=== PATIENT | female | born 1930 | race Caucasian/White ===

== ENCOUNTER 2017-10-07 11:11 | Emergency (ER) | payer MEDICARE, MEDICAID ==
[~2017-10-07] VITALS: Ht 147.3 cm; Wt 56.7 kg
[~2017-10-07 11:11] MED LIST: BLOO-129 IN; BUSP5TAB3 PO; GABA-532 PO; GEL90GEL2 TP; INSU100V27 SQ; INSU3INS6 SQ; LEVO75TA7 PO; LISI2.5T2 PO; MIRT15TA PO; NITR100C PO; QUET25TA PO; VENL75TA4 PO
[2017-10-07 11:14] VITALS: BP 123/53
== END 2017-10-07 13:19 | disposition home or self-care (01) ==
LOC: ER 11:14
DX: K94.29 Other complications of gastrostomy (principal); E07.9 Disorder of thyroid, unspecified; E11.9 Type 2 diabetes mellitus without complications; F03.90 Unspecified dementia, unspecified severity, without behavioral disturbance, psychotic disturbance, mood disturbance, and anxiety; K44.9 Diaphragmatic hernia without obstruction or gangrene; Z79.4 Long term (current) use of insulin
CPT/HCPCS: A4606; Z7502; Z7610

== ENCOUNTER 2019-09-04 11:00 | Inpatient (IN) | payer MEDICARE, MEDICAID ==
[~2019-09-04] VITALS: Ht 147.3 cm; Wt 56.2 kg
--- NOTE | 2019-09-04 11:10 | NUR ---
DAHIANA RA FROM HOME, VOMITING SINCE LAST NIGHT. PATIENT A/OX2-3, GERMAN SPEAKING, BREATHING EVEN AND UNLABORED, NO SOB NOTED, KEPT COMFORTABLE. WILL CONTINUE TO MONITOR. Addendum: 09/04/19 at 1347 by ROALCANCES PATIENT A/OX1-2 WITH EPISODES OF CONFUSION.
[2019-09-04] MEDS ORDERED: ONDANSETRON HCL/PF 4 MG/2 ML VIAL ONE (11:15)
--- NOTE | 2019-09-04 11:15 | NUR ---
IV LINE ESTABLISHED, BLOOD DRAWN AND SENT TO LAB.
[2019-09-04] MEDS ORDERED: ONDANSETRON HCL/PF 4 MG/2 ML VIAL IVP ONE (11:30)
[2019-09-04 11:34] LABS: BASOPHILS # (AUTO) 0.2 /CMM (0.0-0.2); BASOPHILS % (AUTO) 1.3 % (0.0-2.0); EOSINOPHILS % (AUTO) 1.3 % (0.0-6.0); HEMATOCRIT 36 % (33-45); LYMPHOCYTES # (AUTO) 1.1 /CMM (0.8-4.8); LYMPHOCYTES % (AUTO) 7.4 % (20.0-44.0); MEAN CORPUSCULAR HGB CONC 33 g/dl (31.0-36.0); MEAN CORPUSCULAR VOLUME 94 fL (82-100); MONOCYTES # (AUTO) 0.6 /CMM (0.1-1.30); MONOCYTES % (AUTO) 4.5 % (2.0-12.0); NEUTROPHILS # (AUTO) 12.2 /CMM (1.8-8.9); NEUTROPHILS % (AUTO) 85.5 % (43.0-81.0); PLATELET COUNT (AUTO) 155 /CMM (150-450); RED BLOOD CELL COUNT(AUTO) 3.89 MIL/uL (4.0-5.2); WHITE BLOOD COUNT (AUTO) 14.2 K/uL (4.3-11.0)
[2019-09-04 11:45] LABS: CALCIUM, SERUM 9.8 mg/dL (8.5-10.1); CARBON DIOXIDE 27 mmol/L (21-32); CHLORIDE 105 mmol/L (98-107); CREATININE 1.2 mg/dL (0.6-1.3); GLUCOSE 125 mg/dL (74-106); POTASSIUM 3.9 mmol/L (3.5-5.1); SODIUM SERUM 143 mmol/L (136-145); UREA NITROGEN, BLOOD 27 mg/dL (7-18)
[2019-09-04 11:51] LABS: ALANINE AMINOTRANSFERASE 18 U/L (12-78); ALBUMIN 3.5 g/dL (3.4-5.0); ALKALINE PHOSPHATASE 93 U/L (46-116); ASPARTATE AMINOTRANSFERASE 24 U/L (15-37); BILIRUBIN,DIRECT 0.1 mg/dL (0.0-0.2); BILIRUBIN,TOTAL 0.3 mg/dL (0.2-1.0); LIPASE 123 U/L (73-393)
[2019-09-04 12:40] LABS: APPEARANCE,URINE Slightly Cloudy (CLEAR); BILIRUBIN,URINE Negative (NEGATIVE); BLOOD, URINE Trace-intact Ery/uL (NEGATIVE); COLOR,URINE Yellow (YELLOW); KETONES,URINE Negative (NEGATIVE); LEUKOCYTE ESTERASE ,URINE Trace (NEGATIVE); NITRITE, URINE Negative (NEGATIVE); PH,URINE 8.5 (5.0-8.0); PROTEIN,URINE 100 mg/dl (NEGATIVE); UGLUCOSE Negative (NEGATIVE); UROBILINOGEN,URINE 0.2 EU/dL (0.2)
--- NOTE | 2019-09-04 12:47 | NUR ---
CALLED NURSING SUP FOR TELE BED. WILL CALL BACK.
[2019-09-04] MEDS ORDERED: ATOR20TA PO (12:55)
[2019-09-04] MEDS ORDERED: TRAM50TA2 PO (12:55)
[2019-09-04] MEDS ORDERED: MEMA28CA PO (12:55)
[2019-09-04] MEDS ORDERED: ALPR-323 PO (12:55)
[2019-09-04] MEDS ORDERED: LEVO25TA7 PO (12:55)
[2019-09-04 12:58] LABS: BACTERIA,URINE Rare /HPF (None Seen); SQUAMOUS EPITHELIAL CELL,UR Few /HPF (None Seen)
[2019-09-04] MEDS ORDERED: IV NS 0.9% 1,000 ML BAG IV ONE (13:00)
--- NOTE | 2019-09-04 14:19 | NUR ---
REPORT GIVEN TO GEORGE MATHIS FOR LUCIA.
--- NOTE | 2019-09-04 14:50 | NUR ---
mary pt. adm. for intractable vomiting.on tele 1st degree av block with bbb and nsr. rate of 80.family at bedside,dr. odom contacted for elevated bp and ok for use of g-tube.orders given.med. for nausea.
[2019-09-04 15:00] VITALS: BP 183/92
--- NOTE | 2019-09-04 15:04 | NUR ---
PATIENT TRANSFERRED TO ROOM 325-1 VIA ACLS PROTOCOL. NO DISTRESS NOTED. IN STABLE CONDITION.
[2019-09-04] MEDS ORDERED: HYDROCODONE/APAP 5/325MG 1 EACH TABLET PO PRN (15:30)
[2019-09-04] MEDS ORDERED: Z GUARD REMEDY 2 OZ OINT TP PRN (15:30)
[2019-09-04] MEDS ORDERED: MAG HYDROX/AL HYDROX/SIMETH 30 ML UDC PO PRN (15:30)
[2019-09-04] MEDS ORDERED: ACETAMINOPHEN 325 MG TABLET PO PRN (15:30)
[2019-09-04] MEDS ORDERED: LACTULOSE 10 G/15 ML UDC (PYXIS) PO PRN (15:30)
[2019-09-04] MEDS ORDERED: ZOLPIDEM TARTRATE 5 MG TABLET PO PRN (15:30)
[2019-09-04] MEDS ORDERED: ONDANSETRON HCL/PF 4 MG/2 ML VIAL IVP PRN (15:30)
[2019-09-04] MEDS ORDERED: MAGNESIUM HYDROXIDE 30 ML UDC PO PRN (15:30)
[2019-09-04] MEDS: IV D5/0.45 NACL 1,000 ML IV PRN (17:13)
[2019-09-04] MEDS ORDERED: BLOOD SUGAR DIAGNOSTIC 1 EACH STRIP IN SCH (17:30)
[2019-09-04] MEDS: BLOOD SUGAR DIAGNOSTIC 1 EACH STRIP VI SCH ×2 (17:51→21:26)
[2019-09-04] MEDS ORDERED: DEXTROSE 50%-WATER 50 ML DISP.SYRIN IV PRN (18:00)
[2019-09-04] MEDS: VENLAFAXINE 37.5 MG TABLET PO SCH (18:01)
[2019-09-04] MEDS: busPIRone 5 MG TABLET PO SCH (18:02)
[2019-09-04] MEDS: MIRTAZAPINE 15 MG TABLET PO SCH (18:02)
[2019-09-04] MEDS: METOPROLOL TARTRATE 25 MG TABLET PO SCH ×2 (18:02→21:22)
[2019-09-04] MEDS: MEMANTINE HCL 5 MG TABLET PO SCH (18:03)
[2019-09-04] MEDS: *INSULIN REGULAR(HUMULIN R)HUM 100 UNIT/ML VIAL SQ PRN ×2 (18:27→21:26)
--- NOTE | 2019-09-04 19:00 | NUR ---
no change in status.
--- NOTE | 2019-09-04 19:45 | NUR ---
INSTRUMENTATION SUPERVISOR OPENING NOTES RECEIVED PATIENT FROM MORNING SHIFT, ALERT AND ORIENTED X 1-2 CONFUSED, FAMILY ON BEDSIDE. VERBALLY RESPONSIVE [place] SPEAKING. BREATHING REGULAR AND UNLABORED ON ROOM AIR. LEFT FOREARM G 20 IV LINE INTACT AND PATENT, INFUSING WELL WITH NO BLEEDING OR S/S OF INFILTRATION NOTED. ON CARDIAC MONITORING WITH NSR WITH BBB AND 1ST DEGREE HEART BLOCK AT 70bpm. NO S/S OF PAIN/DISCOMFORT NOTED OF THE TIME. NO EPISODE OF NAUSEA/VOMITING OF NOW. BED LOW AND LOCKED ON SEMI FOWLERS POSITION. CALL LIGHT IN REACH. WILL CONTINUE TO MONITOR.
--- NOTE | 2019-09-04 20:00 | NUR ---
MAINTENANCE REPAIRER NOTES FAMILY AWARE OF PATIENTS TRANSFER TO ROOM 327-2 WITH A SITTER FOR SAFETY PRECAUTIONS.
[2019-09-04] MEDS: QUETIAPINE FUMARATE 100 MG TABLET PO SCH (21:22)
[2019-09-04] MEDS: ATORVASTATIN 10 MG TABLET PO SCH (21:22)
[2019-09-04] MEDS: INSULIN GLARGINE, 100 UNIT/ML CARTRIDGE SQ SCH (21:25)
[2019-09-04 22:00] VITALS: BP 170/83
--- NOTE | 2019-09-04 22:00 | NUR ---
RECREATION THERAPY TEACHER NOTES BS 210mg/dl, 4UNITS REGULAR INSULIN AND 20UNITS LANTUS GIVEN SQ. SITE ROTATED. SNACKS GIVEN BY FAMILY. WILL CONTINUE TO MONITOR.
[2019-09-05] VITALS: BP 146/66
[2019-09-05 04:00] VITALS: BP 146/77
--- NOTE | 2019-09-05 04:00 | NUR ---
HEALTH DATA ANALYST NOTES HAD 1 EPISODE OF MEDIUM SOFT BROWN BM.
[2019-09-05] MEDS: IV D5/0.45 NACL 1,000 ML IV PRN ×2 (05:01→22:54)
--- NOTE | 2019-09-05 06:20 | NUR ---
LEAD ENGINEER CLOSING NOTES PATIENT IN BED ALERT AND ORIENTED X 1-2 CONFUSED. VERBALLY RESPONSIVE [place] SPEAKING. BREATHING REGULAR AND UNLABORED ON ROOM AIR. LEFT FOREARM G20 IV LINE PATENT AND INFUSING WELL. MAINTAINED ON CARDIAC MONITORING WITH NSR WITH BBB AND 1ST DEGREE HEART BLOCK AT 72bpm. NO S/S OF PAIN/DISCOMFORT NOTED THE WHOLE SHIFT. NO EPISODE OF NAUSEA/VOMITING AT THIS TIME. BED LOW AND LOCKED ON SEMI FOWLERS POSITION. CALL LIGHT IN REACH. WILL ENDORSE TO MORNING SHIFT FOR LUCIA.
[2019-09-05] MEDS: BLOOD SUGAR DIAGNOSTIC 1 EACH STRIP VI SCH ×4 (06:38→21:32)
[2019-09-05] MEDS: INSULIN REGULAR, HUMAN 100 UNIT/ML 3 ML VIAL SQ PRN (06:40)
[2019-09-05 07:28] LABS: BASOPHILS # (AUTO) 0.1 /CMM (0.0-0.2); BASOPHILS % (AUTO) 0.3 % (0.0-2.0); EOSINOPHILS % (AUTO) 0.1 % (0.0-6.0); HEMATOCRIT 38 % (33-45); HEMOGLOBIN 12.5 g/dL (11.5-14.8); LYMPHOCYTES % (AUTO) 4.9 % (20.0-44.0); MEAN CORPUSCULAR HGB CONC 33 g/dl (31.0-36.0); MEAN CORPUSCULAR VOLUME 91 fL (82-100); MONOCYTES # (AUTO) 0.7 /CMM (0.1-1.30); MONOCYTES % (AUTO) 3.5 % (2.0-12.0); NEUTROPHILS # (AUTO) 19.1 /CMM (1.8-8.9); NEUTROPHILS % (AUTO) 91.2 % (43.0-81.0); PLATELET COUNT (AUTO) 216 /CMM (150-450); RED BLOOD CELL COUNT(AUTO) 4.14 MIL/uL (4.0-5.2); WHITE BLOOD COUNT (AUTO) 20.9 K/uL (4.3-11.0)
[2019-09-05 08:00] VITALS: BP 153/76
--- NOTE | 2019-09-05 08:00 | NUR ---
Tele/RN Note Opening Patient OA x 1, able to responds all stimuli. No episode of nausea, vomited at this time.Skin is warm to touch, kept clean/dry, intact IV site. Respiratory even and unlabored in room air. Pt does no appears pain or any discomfort, keep lower position of bed with elevated HOB. Call light within reach, will continue to monitor.
[2019-09-05 08:01] LABS: THYROID STIMULATING HORMONE 7.13 uIU/mL (0.358-3.74)
[2019-09-05 08:16] LABS: CALCIUM, SERUM 8.6 mg/dL (8.5-10.1); CREATININE 1.1 mg/dL (0.6-1.3); MAGNESIUM 1.7 mg/dL (1.8-2.4); PHOSPHORUS 2.6 mg/dL (2.5-4.9); POTASSIUM 3.6 mmol/L (3.5-5.1)
[2019-09-05] MEDS: PANTOPRAZOLE 40 MG VIAL IV SCH (08:16)
[2019-09-05] MEDS: LEVOTHYROXINE SODIUM 50 MCG TABLET PO SCH (08:16)
[2019-09-05] MEDS: VENLAFAXINE 37.5 MG TABLET PO SCH ×2 (08:16→17:04)
[2019-09-05] MEDS: MEMANTINE HCL 5 MG TABLET PO SCH ×2 (08:17→17:04)
[2019-09-05] MEDS: busPIRone 5 MG TABLET PO SCH ×2 (08:17→17:04)
[2019-09-05] MEDS: METOPROLOL TARTRATE 25 MG TABLET PO SCH ×2 (08:17→21:31)
[2019-09-05] MEDS: MIRTAZAPINE 15 MG TABLET PO SCH ×2 (08:17→17:04)
[2019-09-05] MEDS: Magnesium 1GM/D5W 100ML PREMIX 100 ML IV SCH ×2 (09:34→10:46)
--- NOTE | 2019-09-05 12:03 | NUR ---
WOUND CARE CONSULT: PT PRESENTS WITH BREASTFOLD RASH AND SACRAL SCAR, PRESENT ON ADMISSION. RECOMMENDATIONS MADE FOR SKIN PROTECTION AND SKIN CARE. DISCUSSED WITH NURSING STAFF. WILL SEE YAN. PT ON [facility] BED. IN AGREEMENT WITH PLAN OF CARE. Addendum: 09/05/19 at 1205 by JIMENA SCHAEFER WNDNU Amended: Links added.
[2019-09-05] MEDS ORDERED: MAGNESIUM HYDROXIDE 30 ML UDC PO PRN (15:00)
[2019-09-05 16:00] VITALS: BP 141/70
[2019-09-05] MEDS: CLOTRIMAZOLE 1% 15 GM TUBE TP SCH (17:05)
[2019-09-05] MEDS: *INSULIN REGULAR(HUMULIN R)HUM 100 UNIT/ML VIAL SQ PRN ×2 (17:08→21:33)
--- NOTE | 2019-09-05 18:40 | NUR ---
MS/RN Closing Note Patient is in bed comfortably, respiratory even and unlabored with room air, skin warm to touch, clean/dry, intact IV site. No episode of nausea/vomiting during day time. Keep lower position of bed with elevated HOB. Sitter at bed side. Call light within reach, will endorse lock corner machine operator.
--- NOTE | 2019-09-05 20:00 | NUR ---
MS RN NOTES RECEIVED PATIENT AWAKE IN BED WITH NO DISTRESS NOTED. CALL LIGHT WITHIN REACH. CAREGIVER AT BEDSIDE. NO C/O PAIN OR DISCOMFORT. PERIPHERAL LINE INTACT AND PATENT. BED IN LOW LOCK SETTING. ROOM FREE OF CLUTTER AND BELONGINGS KEPT NEAR BEDSIDE. WILL CONTINUE TO MONITOR
[2019-09-05] MEDS: QUETIAPINE FUMARATE 100 MG TABLET PO SCH (21:30)
[2019-09-05] MEDS: ATORVASTATIN 10 MG TABLET PO SCH (21:30)
[2019-09-05] MEDS: INSULIN GLARGINE, 100 UNIT/ML CARTRIDGE SQ SCH (21:33)
--- NOTE | 2019-09-06 06:31 | NUR ---
MS RN NOTES PATIENT AWAKE IN BED WITH NO DISTRESS NOTED. CALL LIGHT WITHIN REACH. SITTER AT BEDSIDE. NO C/O PAIN OR DISCOMFORT. ALL DUE MEDS GIVEN ORDERED WITH NO ASE NOTED. PERIPHERAL LINES INTACT AND PATENT. ROOM FREE OF CLUTTER AND BELONGINGS KEPT NEAR BEDSIDE. BED IN LOW LOCK SETTING. WILL ENDORSE TO ONCOMING SHIFT.
[2019-09-06] MEDS: BLOOD SUGAR DIAGNOSTIC 1 EACH STRIP VI SCH ×4 (06:35→21:28)
--- NOTE | 2019-09-06 07:40 | NUR ---
MS RN RECEIVED ON BED, AWAKE,ALERT,ORIENTED X1-2, PATIENT IS CONFUSED,NOT IN ANY FORM OF DISTRESS, RESPIRATIONS EVEN AND UNLABORED,NO SOB NOTED, LUNGS ARE DIMINISH,ABDOMEN SOFT,POSITIVE BOWEL SOUNDS,DENIES PAIN AT THIS TIME,ALL NEEDS ATTENDED.
[2019-09-06 08:01] LABS: BASOPHILS # (AUTO) 0.1 /CMM (0.0-0.2); BASOPHILS % (AUTO) 0.4 % (0.0-2.0); EOSINOPHILS % (AUTO) 0.7 % (0.0-6.0); HEMATOCRIT 35 % (33-45); HEMOGLOBIN 11.4 g/dL (11.5-14.8); LYMPHOCYTES # (AUTO) 1.5 /CMM (0.8-4.8); LYMPHOCYTES % (AUTO) 8.4 % (20.0-44.0); MEAN CORPUSCULAR HGB CONC 33 g/dl (31.0-36.0); MEAN CORPUSCULAR VOLUME 92 fL (82-100); MONOCYTES # (AUTO) 1.4 /CMM (0.1-1.30); MONOCYTES % (AUTO) 7.8 % (2.0-12.0); NEUTROPHILS # (AUTO) 14.9 /CMM (1.8-8.9); NEUTROPHILS % (AUTO) 82.7 % (43.0-81.0); PLATELET COUNT (AUTO) 182 /CMM (150-450); RED BLOOD CELL COUNT(AUTO) 3.81 MIL/uL (4.0-5.2); WHITE BLOOD COUNT (AUTO) 18.1 K/uL (4.3-11.0)
--- NOTE | 2019-09-06 08:30 | NUR ---
MS RN BREAKFAST SERVED,DUE MEDS GIVEN,TOLERATED WELL, DENIES PAIN AT THIS TIME, SON IN LAW AT BEDSIDE.
--- NOTE | 2019-09-06 08:30 | NUR ---
MS RN DAUGHTER CALLED, WANTS HER MOM TO BE TRANSFERRED TO OTHER HOSPITAL , TOLD HER THAT WILL NOTIFY CHARGE NURSE,ALL NEEDS ATTENDED.
[2019-09-06] MEDS: VENLAFAXINE 37.5 MG TABLET PO SCH ×2 (08:42→17:20)
[2019-09-06] MEDS: METOPROLOL TARTRATE 25 MG TABLET PO SCH ×2 (08:42→21:04)
[2019-09-06] MEDS: PANTOPRAZOLE 40 MG VIAL IV SCH (08:42)
[2019-09-06] MEDS: busPIRone 5 MG TABLET PO SCH ×2 (08:42→17:21)
[2019-09-06] MEDS: MEMANTINE HCL 5 MG TABLET PO SCH ×2 (08:42→17:21)
[2019-09-06] MEDS: MIRTAZAPINE 15 MG TABLET PO SCH ×2 (08:43→17:21)
[2019-09-06] MEDS: LEVOTHYROXINE SODIUM 50 MCG TABLET PO SCH (08:49)
[2019-09-06 09:17] LABS: CALCIUM, SERUM 8.3 mg/dL (8.5-10.1); CREATININE 1.2 mg/dL (0.6-1.3); MAGNESIUM 2.3 mg/dL (1.8-2.4); POTASSIUM 3.4 mmol/L (3.5-5.1)
--- NOTE | 2019-09-06 10:00 | NUR ---
MS RN WAS SEEN BY DR. MILLER, WAS ABNLE TO JOSE W/ SON IN LAW W/ ORDERS MADE AND CARRIED OUT.
[2019-09-06] MEDS: CEFTRIAXONE 1 G in IV D5W 50 ML IV SCH (13:32)
[2019-09-06] MEDS: INSULIN REGULAR, HUMAN 100 UNIT/ML 3 ML VIAL SQ PRN ×2 (13:33→17:55)
[2019-09-06] MEDS: CLOTRIMAZOLE 1% 15 GM TUBE TP SCH ×2 (13:42→17:21)
[2019-09-06] MEDS: IV D5/0.45 NACL 1,000 ML IV PRN (14:43)
--- NOTE | 2019-09-06 15:00 | NUR ---
ms rn on bed, family at bedside.
[2019-09-06 16:00] VITALS: BP 139/74
[2019-09-06 18:00] VITALS: BP 139/74
--- NOTE | 2019-09-06 18:00 | NUR ---
ms rn on bed. no distress noted.
--- NOTE | 2019-09-06 19:40 | NUR ---
MS RN OPENING NOTES RECEIVED PATIENT FROM MORNING SHIFT, ALERT AND ORIENTED X 1-2 CONFUSED, CAREGIVER ON BEDSIDE. VERBALLY RESPONSIVE [place]INID[place] SPEAKING. BREATHING REGULAR AND UNLABORED ON ROOM AIR. LEFT FOREARM G 20 IV LINE INTACT AND PATENT, INFUSING WELL WITH NO BLEEDING OR S/S OF INFILTRATION NOTED. NO S/S OF PAIN/DISCOMFORT NOTED OF THE TIME. NO EPISODE OF NAUSEA/VOMITING OF NOW. BED LOW AND LOCKED ON SEMI FOWLERS POSITION. CALL LIGHT IN REACH. WILL CONTINUE TO MONITOR.
[2019-09-06 19:55] VITALS: BP 155/69
[2019-09-06 20:00] VITALS: BP 155/69
[2019-09-06] MEDS: QUETIAPINE FUMARATE 100 MG TABLET PO SCH (21:04)
[2019-09-06] MEDS: ATORVASTATIN 10 MG TABLET PO SCH (21:04)
[2019-09-06] MEDS: INSULIN GLARGINE, 100 UNIT/ML CARTRIDGE SQ SCH (21:30)
[2019-09-06] MEDS: *INSULIN REGULAR(HUMULIN R)HUM 100 UNIT/ML VIAL SQ PRN (21:35)
--- NOTE | 2019-09-06 22:00 | NUR ---
MS RN NOTES BS 169mg/dl, 3UNITS REGULAR INSULIN AND 20UNITS LANTUS GIVEN SQ. SITE ROTATED. SNACKS PROVIDED, ASSISTED ON FEEDING. WILL CONTINUE TO MONITOR.
[2019-09-07] MEDS: IV D5/0.45 NACL 1,000 ML IV PRN ×2 (03:35→17:37)
--- NOTE | 2019-09-07 06:30 | NUR ---
MS RN NOTES BS 71mg/dl, NO INSULIN COVERAGE NEEDED. ORANGE JUICE GIVEN VIA GTUBE. WILL CONTINUE TO MONITOR.
[2019-09-07] MEDS: BLOOD SUGAR DIAGNOSTIC 1 EACH STRIP VI SCH ×4 (06:42→22:27)
--- NOTE | 2019-09-07 06:55 | NUR ---
MS RN CLOSING NOTES PATIENT IN BED ALERT AND ORIENTED X 1-2 CONFUSED. VERBALLY RESPONSIVE LITHU[place]IAN SPEAKING. BREATHING REGULAR AND UNLABORED ON ROOM AIR. RIGHT FOREARM G20 IV LINE PATENT AND INFUSING WELL. NO S/S OF PAIN/DISCOMFORT NOTED THE WHOLE SHIFT. NO EPISODE OF NAUSEA/VOMITING NOTED. HAD 1 SOFT BROWN SMALL BM. BED LOW AND LOCKED ON SEMI FOWLERS POSITION. CALL LIGHT IN REACH. WILL ENDORSE TO MORNING SHIFT FOR LUCIA.
[2019-09-07] MEDS: LEVOTHYROXINE SODIUM 50 MCG TABLET PO SCH (07:30)
[2019-09-07 07:43] LABS: BASOPHILS # (AUTO) 0.3 /CMM (0.0-0.2); BASOPHILS % (AUTO) 2.2 % (0.0-2.0); EOSINOPHILS % (AUTO) 2.6 % (0.0-6.0); HEMATOCRIT 34 % (33-45); HEMOGLOBIN 11.3 g/dL (11.5-14.8); LYMPHOCYTES # (AUTO) 1.8 /CMM (0.8-4.8); LYMPHOCYTES % (AUTO) 14.3 % (20.0-44.0); MEAN CORPUSCULAR HGB CONC 33 g/dl (31.0-36.0); MEAN CORPUSCULAR VOLUME 95 fL (82-100); MONOCYTES # (AUTO) 1.3 /CMM (0.1-1.30); MONOCYTES % (AUTO) 10.4 % (2.0-12.0); NEUTROPHILS # (AUTO) 8.7 /CMM (1.8-8.9); NEUTROPHILS % (AUTO) 70.5 % (43.0-81.0); PLATELET COUNT (AUTO) 148 /CMM (150-450); RED BLOOD CELL COUNT(AUTO) 3.64 MIL/uL (4.0-5.2); WHITE BLOOD COUNT (AUTO) 12.4 K/uL (4.3-11.0)
--- NOTE | 2019-09-07 07:53 | NUR ---
MS/RN OPENING NOTE Patient is resting in bed, A/O x1 showing no signs of acute distress or SOB, saturating >95% on RA. Patient has no complaints of pain at this time. IV line in the R forearm #24g is clean and intact. Patient advanced to SOFT DIET per MD order, will monitor if patient can tolerate. Bed is in lowest position, side rails x3 in upright position, sitter at the bedside. Fall safety and aspiration precautions enforced. Will continue with plan of care.
[2019-09-07 07:59] LABS: CALCIUM, SERUM 8.2 mg/dL (8.5-10.1); CREATININE 1.1 mg/dL (0.6-1.3); POTASSIUM 3.5 mmol/L (3.5-5.1)
[2019-09-07 08:00] VITALS: BP 124/48
[2019-09-07] MEDS: busPIRone 5 MG TABLET PO SCH ×2 (09:00→16:29)
[2019-09-07] MEDS: METOPROLOL TARTRATE 25 MG TABLET PO SCH ×2 (09:00→22:02)
[2019-09-07] MEDS: MEMANTINE HCL 5 MG TABLET PO SCH ×2 (09:00→16:28)
[2019-09-07] MEDS: VENLAFAXINE 37.5 MG TABLET PO SCH ×2 (09:01→16:28)
[2019-09-07] MEDS: PANTOPRAZOLE 40 MG VIAL IV SCH (09:01)
[2019-09-07] MEDS: MIRTAZAPINE 15 MG TABLET PO SCH ×2 (09:01→16:28)
[2019-09-07] MEDS: CLOTRIMAZOLE 1% 15 GM TUBE TP SCH ×2 (09:02→17:18)
[2019-09-07] MEDS: CEFTRIAXONE 1 G in IV D5W 50 ML IV SCH (11:13)
[2019-09-07] MEDS: *INSULIN REGULAR(HUMULIN R)HUM 100 UNIT/ML VIAL SQ PRN ×2 (12:04→22:33)
[2019-09-07 16:30] VITALS: BP 153/73
--- NOTE | 2019-09-07 19:07 | NUR ---
MS/RN CLOSING NOTE Patient is resting in bed, A/O x1, confused, showing no signs of acute distress or SOB, saturating >95% on RA. Patient had temp of 99.2 at 1630, tylenol given and temp went down to 98.1. IV line in the R forearm #24g is clean and intact running D5 1/2 NS @ 75cc/hr. Patient advanced to MECHANICAL SOFT DIET per MD order, patient able to tolerate throughout shift, no episodes of vomiting. G-tube noted, clean and patent. Bed is in lowest position, side rails x3 in upright position, sitter at the bedside. Fall safety and aspiration precautions enforced. Will endorse to restaurant shift leader.
--- NOTE | 2019-09-07 19:28 | NUR ---
MS RN OPENING NOTES PATIENT AWAKE IN BED. FAMILY & SITTER PRESENT AND THE BEDSIDE. A/O X1. ON ROOM AIR. NO S/S OF SOB OR COMPLAINTS OF PAIN. IV PRESENT ON RIGHT FA, SIZE 24, INTACT & PATENT, D5 1/2NS RUNNING AT 75CC/HR. BED LOCKED, ALARM ON, SIDE RAILS X2, CALL LIGHT WITHIN REACH. WILL CONTINUE TO MONITOR.
[2019-09-07 20:00] VITALS: BP 136/71
[2019-09-07] MEDS: QUETIAPINE FUMARATE 100 MG TABLET PO SCH (22:03)
[2019-09-07] MEDS: ATORVASTATIN 10 MG TABLET PO SCH (22:03)
[2019-09-07] MEDS: INSULIN GLARGINE, 100 UNIT/ML CARTRIDGE SQ SCH (22:32)
[2019-09-08] MEDS: IV D5/0.45 NACL 1,000 ML IV PRN (06:56)
[2019-09-08] MEDS: INSULIN REGULAR, HUMAN 100 UNIT/ML 3 ML VIAL SQ PRN ×2 (07:51→12:08)
--- NOTE | 2019-09-08 07:56 | NUR ---
MS RN CLOSING NOTES PATIENT ASLEEP IN BED. SITTER PRESENT AT THE BEDSIDE. A/OX1. ON ROOM AIR. NO S/S OF SOB OR DISTRESS NOTED. IV ON RIGHT FA, SIZE 24, INTACT & PATENT WITH D5 1/2NS RUNNING AT 75CC/HR. BED LOCKED, SIDE RAILS X2, CALL LIGHT WITHIN [facility]. WILL ENDORSE TO DAY SHIFT NURSE TO FOLLOW PLAN OF CARE.
--- NOTE | 2019-09-08 08:00 | NUR ---
MS RN OPENING NOTES Received Patient asleep and resting in bed. A/O x 1, Rw[place]an speaking. VS stable with no acute distress. Breathing even and unlabored on room air with no respiratory distress. Denies pain. No signs and symptoms of pain. 24g PIV on RFA clean, intact, patent and flushing well with D51/2NS infusing at 75ml/hr. Gtube in place and patent. Safety precautions in place. Bed locked and set to lowest position with side rails x 2 up. All needs rendered at this time. Call light within reach. Will continue to monitor.
[2019-09-08] MEDS: BLOOD SUGAR DIAGNOSTIC 1 EACH STRIP VI SCH ×2 (08:09→12:06)
[2019-09-08] MEDS: LEVOTHYROXINE SODIUM 50 MCG TABLET PO SCH (08:39)
[2019-09-08] MEDS: busPIRone 5 MG TABLET PO SCH (08:39)
[2019-09-08] MEDS: PANTOPRAZOLE 40 MG VIAL IV SCH (08:39)
[2019-09-08] MEDS: VENLAFAXINE 37.5 MG TABLET PO SCH (08:39)
[2019-09-08 08:40] VITALS: BP 146/71
[2019-09-08] MEDS: MIRTAZAPINE 15 MG TABLET PO SCH (08:40)
[2019-09-08] MEDS: MEMANTINE HCL 5 MG TABLET PO SCH (08:40)
[2019-09-08] MEDS: METOPROLOL TARTRATE 25 MG TABLET PO SCH (08:40)
[2019-09-08] MEDS: CLOTRIMAZOLE 1% 15 GM TUBE TP SCH (08:41)
[2019-09-08] MEDS ORDERED: CEPH-570 PO (08:53)
[2019-09-08] MEDS: CEFTRIAXONE 1 G in IV D5W 50 ML IV SCH (12:06)
--- NOTE | 2019-09-08 16:22 | NUR ---
MS SCHOOL [employer]FET[employer] COOK HEAD NOTES Patient discharged for home at this time. Patient in stable condition. VS stable with no acute distress. Breathing even and unlabored on room air with no respiratory distress. Denies pain. No signs and symptoms of pain. Patient refused skin assessment pictures. Medication reconciliation and discharge orders reviewed and explained to family. Family verbalized understanding. All belongings with Patient. Patient will follow up with PCP in 1 week. Escorted Patient to the Lobby for safety. Patient picked up by daughter and other family member.
== END 2019-09-08 16:40 | disposition home health service (06) | DRG 389 ==
LOC: ER 11:01 → TELE 14:04 → MED 09-05 09:25
PROVIDERS: ATTEND Family Medicine
DX: K56.41 Fecal impaction (principal); N39.0 Urinary tract infection, site not specified; I50.32 Chronic diastolic (congestive) heart failure; J98.11 Atelectasis; R13.10 Dysphagia, unspecified; I11.0 Hypertensive heart disease with heart failure; Z93.1 Gastrostomy status; E03.9 Hypothyroidism, unspecified; F03.90 Unspecified dementia, unspecified severity, without behavioral disturbance, psychotic disturbance, mood disturbance, and anxiety; F32.9 Major depressive disorder, single episode, unspecified; K44.9 Diaphragmatic hernia without obstruction or gangrene; K21.9 Gastro-esophageal reflux disease without esophagitis; Z90.49 Acquired absence of other specified parts of digestive tract; Z98.890 Other specified postprocedural states; Z79.4 Long term (current) use of insulin; Z79.899 Other long term (current) drug therapy; Z87.81 Personal history of (healed) traumatic fracture; E11.65 Type 2 diabetes mellitus with hyperglycemia; E86.9 Volume depletion, unspecified; I44.7 Left bundle-branch block, unspecified; I70.8 Atherosclerosis of other arteries; J44.9 Chronic obstructive pulmonary disease, unspecified; Z79.890 Hormone replacement therapy; R33.9 Retention of urine, unspecified
CPT/HCPCS: 36415; 71045-TC; 80048-TC; 80061-TC; 80076-TC; 81000-TC; 82962-TC; 83605-TC; 83690-TC; 83735-TC; 84100-TC; 84443-TC; 84484-TC; 85025-TC; 87040-TC; 87081-TC; 87086-TC; C9113; G0378; J0696; J1815; J2405; J3475; J3490; J7060